=== PATIENT | male | born 1975 | race Caucasian/White ===

== ENCOUNTER 2016-07-04 16:11 | Inpatient (IN) | payer OTHER ==
[2016-07-04] VITALS (10 sets, daily range): BP systolic 98–137; BP diastolic 32–98; PULSE 82–107; RESP 17–23; TEMP 99.2–101.1; O2SAT 82–94
[~2016-07-04] VITALS: Ht 180.3 cm; Wt 264.0 kg
--- NOTE | 2016-07-04 16:11 | NUR ---
Patient to ER bed 1 to gown for evaluation. Side rails up. Report given to MILLER Lowe.
--- NOTE | 2016-07-04 16:15 | NUR ---
Dr. Cisneros by bedside examining patient.New orders recieved.
--- NOTE | 2016-07-04 16:20 | NUR ---
Patient brought in by ambulance for altered mental status. Patient upon admit is a 41 year old morbidly obese male, oriented to name only, confused, disoriented, presents labored breathing, shortness of breath, mild grade temp 99.3.No other complaints, injury per patient, none noted.
[2016-07-04] MEDS ORDERED: IPRATROPIUM BROM 0.5 MG/2.5 ML VIAL.NEB (ATROVENT) INH ONE (16:30)
[2016-07-04] MEDS ORDERED: LEVOFLOXACIN 500 MG/D5W 100 ML IV ONE ×2 (16:30→19:00)
[2016-07-04] MEDS: ALBUTEROL SULFATE 0.083% 2.5 MG/3 ML VIAL.NEB INH PRN ×2 (16:38→18:27)
--- NOTE | 2016-07-04 16:42 | NUR ---
# 20 gauge angiocath placed to left upper arm . Use of asceptic technique. Opsite placed over site. Blood return noted. Blood for lab drawn from site. Flushed with 10 cc of normal saline. No evidence of infiltration noted. Patient tolerated well.
[2016-07-04 16:49] LABS: ABG TOTAL HEMOGLOBIN 14.3 G/dL (12.0-18.0); BLOOD GAS BASE EXCESS 2.7 mmol/L (-3.0-3.0)
[2016-07-04 16:50] LABS: BLOOD GAS COHb% 1.6 % (0.5-1.5); BLOOD GAS HHB 15.3 % (0.0-6.0); BLOOD O2Hb% 82.6 % (94.0-97.0)
--- NOTE | 2016-07-04 16:50 | NUR ---
RT contacted to place patient on bipap support.
[2016-07-04 16:56] LABS: BASOPHILS # (AUTO) 0.3 K/uL (0.0-0.2); EOSINOPHILS % (AUTO) 0.1 % (0.0-4.0); LYMPHOCYTES # (AUTO) 0.5 K/uL (1.0-5.5); MEAN CORPUSCULAR HEMOGLOBIN 24 pg (27-31)
[2016-07-04 17:07] LABS: BASOPHILS % (AUTO) 1.9 % (0.0-2.0); CALCIUM 8.8 mg/dL (8.4-11.0); CHLORIDE 98 mmol/L (98-107); CREATININE 1.41 mg/dL (0.55-1.30); GLUCOSE 161 mg/dL (70-99); HEMATOCRIT 44.8 % (36-54); HEMOGLOBIN 13.8 g/dL (14.0-18.0); INR 1.1 (0.80-1.20); MEAN CORPUSCULAR HGB CONC 31 % (32-36); MEAN CORPUSCULAR VOLUME 79 fL (79.0-98.0); MONOCYTES # (AUTO) 0.7 K/uL (0.0-1.0); MONOCYTES % (AUTO) 4.1 % (1.7-9.3); NEUTROPHILS # (AUTO) 16.7 K/uL (1.8-7.7); NEUTROPHILS % (AUTO) 90.9 % (40.0-70.0); POTASSIUM 3.9 mmol/L (3.5-5.1); PROTHROMBIN TIME 11.5 SECS (9.5-12.5); RED BLOOD CELL COUNT(AUTO) 5.71 MIL/uL (4.2-6.2); RED CELL DISTRIBUTION WIDTH 16.7 % (9.0-15.0); SODIUM SERUM 133 mmol/L (136-145); UREA NITROGEN, BLOOD 38 mg/dL (8-21); WHITE BLOOD COUNT (AUTO) 18.2 K/uL (4.8-10.8)
[2016-07-04] MEDS ORDERED: FUROSEMIDE 100 MG/10 ML VIAL ONE (17:12)
[2016-07-04] MEDS ORDERED: ASPIRIN 81 MG TAB.CHEW ONE (17:12)
[2016-07-04 17:13] LABS: ALANINE AMINOTRANSFERASE 101 U/L (12-78); ASPARTATE AMINOTRANSFERASE 37 U/L (10-37); TOTAL BILIRUBIN 0.8 mg/dL (0.0-1.0); TOTAL PROTEIN, SERUM 7.9 g/dL (6.4-8.3)
[2016-07-04 17:15] LABS: GFR AFRICAN AMERICAN 72 mL/min (>90)
[2016-07-04] MEDS ORDERED: FUROSEMIDE 100 MG/10 ML VIAL IVP ONE (17:15)
[2016-07-04] MEDS ORDERED: ASPIRIN 81 MG TAB.CHEW PO ONE (17:15)
[2016-07-04 17:16] LABS: ANION GAP < 3 (5-15)
[2016-07-04 17:21] LABS: PLATELET COUNT (AUTO) 328 K/uL (130-430)
--- NOTE | 2016-07-04 17:55 | NUR ---
Patient medicated as ordered.
[2016-07-04] MEDS ORDERED: ASPIRIN 81 MG TABLET(ECOTRIN) PO ONE (18:00)
[2016-07-04 18:13] LABS: ABG TOTAL HEMOGLOBIN 14.2 G/dL (12.0-18.0); BLOOD GAS BASE EXCESS 1.1 mmol/L (-3.0-3.0); BLOOD GAS PH 7.234 (7.350-7.450); BLOOD O2Hb% 83.6 % (94.0-97.0)
[2016-07-04 18:14] LABS: BLOOD GAS COHb% 1.5 % (0.5-1.5); BLOOD GAS HHB 14.8 % (0.0-6.0)
[2016-07-04] MEDS ORDERED: methylPREDNISolone SOD SUCC/PF 62.5 MG/ML VIAL IVP ONE (18:30)
[2016-07-04] MEDS ORDERED: IPRATROPIUM/ALBUTEROL SULFATE 3 ML AMPUL.NEB INH ONE (18:30)
[2016-07-04] MEDS ORDERED: methylPREDNISolone SOD SUCC/PF 62.5 MG/ML VIAL ONE (18:34)
[2016-07-04] MEDS ORDERED: LOSA1TAB34 PO (18:40)
[2016-07-04] MEDS ORDERED: PROP10TA10 PO (18:40)
[2016-07-04] MEDS ORDERED: ADDERAL PO (18:40)
[2016-07-04] MEDS ORDERED: ALBU8.5H8 INH (18:40)
[2016-07-04] MEDS ORDERED: VANCOMYCIN HCL 1,000 MG in NS 250 ML IV ONE (18:45)
[2016-07-04] MEDS ORDERED: NITROGLYCERIN 1 INCH (GM) OINT. TP ONE (18:45)
--- NOTE | 2016-07-04 18:55 | NUR ---
Transferred Patient transferred from ED to ICU bed 5 accompanied by ACLS staff and mother. Patient was transferred with 100% FIO2 mask. Patient is alert to name only, confused, disoriented. Placed on monitor. Bed locked, in lowest position, upper side rails x 2, call light within easy reach. Report given to MILLER Webster. Endorsed care to night nurse, MILLER Webster.
--- NOTE | 2016-07-04 18:55 | NUR ---
Transfer to ICU via ACLS protocol. Licensed nurse present. IV present no signs or symptoms of infiltration. Summary report printed. Report given at bedside.
[2016-07-04] MEDS ORDERED: AZITHROMYCIN 500 MG in NS 250 ML IV ONE (19:00)
--- NOTE | 2016-07-04 20:00 | NUR ---
DR JOE Wagner notified regarding Pt's condition. Orders received. 1. Change 18/5 BUR 20 2. Keep O2 Sat 88-93% 3. Repeat ABG after 1hour.
--- NOTE | 2016-07-04 20:00 | NUR ---
ASSESSMENT Pt lethargic, opens eyes to verbal stimulus. Bipap in use. SL present left AC. Bilateral lower extremities with pitting edema. Right medial lower leg with redness from foot to groin.
--- NOTE | 2016-07-04 20:18 | NUR ---
Called Dr. Wagner, Dr. Salgado and Dr. Naik's exchange for consults. SPoke to [facility]. Nurse is aware.
[2016-07-04] MEDS ORDERED: VANCOMYCIN HCL 1000 MG/VIAL IV ONE (20:42)
--- NOTE | 2016-07-04 20:45 | NUR ---
[facility] CATH: # 16 FR Beatty catheter with 10 cc bulb inserted with use of sterile technique. Bulb inflated with 10 cc sterile water. Immediate return of 600 cc lee urine noted. Bedside drainage bag placed below level of bladder. Urine sample collected and sent to lab at 2120. Pt tolerated procedure well.
[2016-07-04] MEDS ORDERED: IPRATROPIUM BROM 0.5 MG/2.5 ML VIAL.NEB (ATROVENT) INH PRN (21:30)
[2016-07-04] MEDS ORDERED: ALBUTEROL SULFATE 0.083% 2.5 MG/3 ML VIAL.NEB INH PRN (21:30)
[2016-07-04 21:39] LABS: BILIRUBIN,URINE NEGATIVE (NEGATIVE); BLOOD, URINE 2+ (NEGATIVE); CLARITY/URINE CLEAR (CLEAR); COLOR,URINE YELLOW (YELLOW); GLUCOSE,URINE NEGATIVE (NEGATIVE); KETONES,URINE NEGATIVE (NEGATIVE); LEUKOCYTE ESTERASE ,URINE NEGATIVE (NEGATIVE); NITRITE, URINE NEGATIVE (NEGATIVE); PROTEIN URINE TRACE (NEGATIVE)
[2016-07-04] MEDS ORDERED: ENOXAPARIN SODIUM 40 MG/0.4 ML SYRINGE SUBCUT ONE (21:45)
[2016-07-04 22:10] LABS: BACTERIA,URINE FEW /HPF (None Seen); WBC,URINE 0-3 /HPF (0-3)
[2016-07-04 22:11] LABS: FINE GRANULAR CASTS,URINE 0-10 /LPF (None Seen); MUCUS,URINE 1+ /LPF (None Seen)
[2016-07-04 22:19] LABS: ABG TOTAL HEMOGLOBIN 14.5 G/dL (12.0-18.0)
[2016-07-04 22:20] LABS: BLOOD GAS COHb% 1.8 % (0.5-1.5); BLOOD GAS HHB 7.9 % (0.0-6.0)
[2016-07-04] MEDS: INSULIN ASPART 100 UNITS/ML, 10 ML VIAL (NovoLOG) SUBCUT PRN (23:14)
[2016-07-05] VITALS (30 sets, daily range): BP systolic 85–132; BP diastolic 37–67; PULSE 78–95; RESP 16–36; TEMP 97.4–100.1; O2SAT 83–96; Ht 180.3 cm; Wt 264.0 kg
[2016-07-05] MEDS ORDERED: IPRATROPIUM/ALBUTEROL SULFATE 3 ML AMPUL.NEB INH SCH
[2016-07-05] MEDS ORDERED: CEFAZOLIN 1 GM IVPB PREMIX 100 ML IV ONE (00:18)
[2016-07-05] MEDS: CEFAZOLIN 1 GM IVPB PREMIX 50 ML IV SCH ×2 (01:15→06:04)
[2016-07-05] MEDS: ALBUTEROL SULFATE 0.083% 2.5 MG/3 ML VIAL.NEB INH SCH ×4 (02:32→19:28)
[2016-07-05] MEDS: IPRATROPIUM BROM 0.5 MG/2.5 ML VIAL.NEB (ATROVENT) INH SCH ×4 (02:33→19:28)
[2016-07-05] MEDS: INSULIN ASPART 100 UNITS/ML, 10 ML VIAL (NovoLOG) SUBCUT PRN (06:17)
[2016-07-05 06:44] LABS: ALBUMIN 2.5 g/dL (3.4-4.8); CALCIUM 8.3 mg/dL (8.4-11.0); CREATININE 1.76 mg/dL (0.55-1.30); POTASSIUM 4.2 mmol/L (3.5-5.1); TOTAL BILIRUBIN 0.8 mg/dL (0.0-1.0); TOTAL PROTEIN, SERUM 6.9 g/dL (6.4-8.3)
[2016-07-05 06:54] LABS: EOSINOPHILS % (AUTO) 0.1 % (0.0-4.0); HEMATOCRIT 38.5 % (36-54); HEMOGLOBIN 12.1 g/dL (14.0-18.0); LYMPHOCYTES # (AUTO) 0.5 K/uL (1.0-5.5); LYMPHOCYTES % (AUTO) 2.3 % (20.5-51.5); MEAN CORPUSCULAR HEMOGLOBIN 25 pg (27-31); MEAN CORPUSCULAR HGB CONC 31 % (32-36); MEAN CORPUSCULAR VOLUME 80 fL (79.0-98.0); MONOCYTES # (AUTO) 1.2 K/uL (0.0-1.0); MONOCYTES % (AUTO) 5.4 % (1.7-9.3); NEUTROPHILS # (AUTO) 21.2 K/uL (1.8-7.7); NEUTROPHILS % (AUTO) 92.2 % (40.0-70.0); PLATELET COUNT (AUTO) 320 K/uL (130-430); RED BLOOD CELL COUNT(AUTO) 4.84 MIL/uL (4.2-6.2); RED CELL DISTRIBUTION WIDTH 17.1 % (9.0-15.0); WHITE BLOOD COUNT (AUTO) 22.9 K/uL (4.8-10.8)
--- NOTE | 2016-07-05 07:15 | NUR ---
INITIAL NOTES RECEIVED PATIENT ON BED ASLEEP WITH SISTER AND MOTHER AT BEDSIDE.BREATHING EVEN AND UNLABORED WITH BIPAP MACHINE;TOLERATING SETTINGS WELL.NO ACUTE DISTRESS.IV SALINE LOCK INTACT AND PATENT;NO SIGNS AND SYMPTOMS OF INFILTRATION.SAFETY AND FALL PRECAUTIONS IN PLACE.CALL LIGHT WITHIN REACH
--- NOTE | 2016-07-05 08:00 | NUR ---
MD NOTIFICATION: DR. DIAZ CRITICAL ABG RESULTS RELAYED TO DR. DIAZ.
[2016-07-05 08:02] LABS: BLOOD GAS PH 7.235 (7.350-7.450)
[2016-07-05 08:03] LABS: ABG TOTAL HEMOGLOBIN 12.6 G/dL (12.0-18.0); BLOOD GAS BASE EXCESS 5.1 mmol/L (-3.0-3.0); BLOOD GAS COHb% 1.4 % (0.5-1.5); BLOOD O2Hb% 78.7 % (94.0-97.0)
--- NOTE | 2016-07-05 08:20 | NUR ---
RN NOTES DR. GALLO HERE TO EVALUATE PATIENT NEED FOR INTUBATION, PATIENT MORE AWAKE AND TALKING AT THIS TIME. SPOKE TO THE PATIENT AND FAMILY RE: PLAN OF CARE. WILL RECHECK BLOOD GASES IN 30 MIN.
--- NOTE | 2016-07-05 09:15 | NUR ---
Nutrition Update Sukhwinder Scale 15 noted. Pt admitted for Acute Respiratory Failure, CHF. Diet: Clear Liquid BMI: 81.2 kg/m2 RD to follow per nutrition care standards.
[2016-07-05 09:22] LABS: BLOOD GAS PH 7.272 (7.350-7.450)
[2016-07-05 09:23] LABS: ABG TOTAL HEMOGLOBIN 12.7 G/dL (12.0-18.0); BLOOD GAS BASE EXCESS 5.3 mmol/L (-3.0-3.0); BLOOD GAS COHb% 1.4 % (0.5-1.5); BLOOD GAS HHB 4.4 % (0.0-6.0); BLOOD O2Hb% 93.7 % (94.0-97.0)
--- NOTE | 2016-07-05 10:42 | NUR ---
ICU Assessment Patient was referred by Inventory Control Associate for ICU Assessment. Patient has acute respiratory failure, CHF, renal insufficiency, bilateral leg swelling and right leg cellulitis. History of obesity s/p bariatric surgery, hypertension, DM, CHF. HAND LACER met with patient's sister at bedside. Patient was on CPAP with labored breathing and did not rouse when spoken to. Patient's sister has just returned to the [place] from [place]. She stated that patient lives with his parents and has been very sob for months. He has been unable to sleep lying down for some time. He only agreed to go to urgent care because of leg pain. [place] and she wonders if patient received a bug bite on his leg. Patient's sister stated patient and the family are aware that patient may need to be intubated. She is aware that when patient is stable, he will go to a [facility] facility and they will discuss discharge plans at that time. She stated that patient and family are very yazdanism and are praying for patient and find that to be a great source of comfort. HAND LACER offered support and provided Social Service contact information.
--- NOTE | 2016-07-05 11:15 | NUR ---
DR. MONTIEL CAME AND EXAMINED THE PATIENT;WITH ORDERS AND CARRIED OUT
--- NOTE | 2016-07-05 11:24 | NUR ---
Discharge Planning Met with Mother and sister at bedside to discuss DC plan. I explained to them that we have notified [facility] of this admission and they are aware and have authorized patient's stay through today. I told them that [facility] will call for updates and their physician will speak with patient's admitting physician for status updates as well. Once MDs agree that patient is stable for transfer, [facility] will arrange transfer to one of their contracted facilities most likely [facility]. Family verbalized an understanding and are agreeable with transfer when indicated by MD. their facility of choice is [facility].
[2016-07-05] MEDS ORDERED: CEFTAROLINE FOSAMIL ACETATE 600 MG in NS 250 ML IV ONE (11:45)
[2016-07-05] MEDS ORDERED: methylPREDNISolone SOD SUCC 40 MG/ML VIAL IVP ONE (11:45)
--- NOTE | 2016-07-05 11:50 | NUR ---
DR. GALO CAME AND EXAMINED THE PATIENT;INFORMED REGARDING PATIENT'S LOW OUTPUT;WITH ORDERS AND CARRIED OUT
[2016-07-05] MEDS: NACL 0.9% 1,000 ML IV SCH (12:38)
--- NOTE | 2016-07-05 13:00 | NUR ---
PATIENT SERVED LUNCH;TOLERATED DIET WELL;ENCOURAGED TO EAT SLOWLY TO PREVENT ASPIRATION
--- NOTE | 2016-07-05 14:10 | NUR ---
DR. DIAZ HERE TO SEE PATIENT.
--- NOTE | 2016-07-05 14:45 | NUR ---
DR. DIAZ CAME AND EXAMINED THE PATIENT;WITH ORDERS AND CARRIED OUT
[2016-07-05] MEDS: ACETAMINOPHEN 325 MG TABLET PO PRN (14:56)
--- NOTE | 2016-07-05 15:25 | NUR ---
RT NOTES Pt. cont. to be off of BIPAP, pt. is awake, talking to family/visitor. Dr Wagner is aware.
--- NOTE | 2016-07-05 16:00 | NUR ---
PATIENT ON BED AWAKE TALKING TO FAMILY MEMBERS;NO ACUTE DISTRESS
--- NOTE | 2016-07-05 17:00 | NUR ---
RN NOTES: NEPHROLOGY CONSULT DR. PALACIOS CALLED FOR NEPHRO CONSULT.
--- NOTE | 2016-07-05 18:40 | NUR ---
PATIENT IS ON BED AWAKE ALERT,AND ORIENTED;EATING DINNER INDEPENDENTLY.BREATHING EVEN AND UNLABORED WITH O2 AT 3L/M VIA NASAL CANNULA;O2 SAT=92%.NO ACUTE DISTRESS.IVF INFUSING WELL;NO SIGNS AND SYMPTOMS OF INFILTRATION.SAFETY AND FALL PRECAUTIONS IN PLACE.CALL LIGHT WITHIN REACH.WILL ENDORSE TO NEXT SHIFT ACCORDINGLY
--- NOTE | 2016-07-05 19:30 | NUR ---
Received SBAR report from Oriana Archuleta RN. Patient Alert and oriented talking with the family. Denies any discomforts at this time. Tolerating O2 at 3L/min N/C. No distress noted.
[2016-07-05] MEDS: CEFTAROLINE FOSAMIL ACETATE 600 MG in NS 250 ML IV SCH (20:46)
[2016-07-05] MEDS: methylPREDNISolone SOD SUCC 40 MG/ML VIAL IVP SCH (20:46)
[2016-07-05] MEDS: ENOXAPARIN SODIUM 40 MG/0.4 ML SYRINGE SUBCUT SCH (20:46)
[2016-07-05] MEDS: traMADol HCL HCL 50 MG TABLET (ULTRAM) PO PRN (23:47)
--- NOTE | 2016-07-05 23:47 | NUR ---
Conveyed pain to the right leg with scale of 5 using numeric scale. Tramadol given as ordered.
[2016-07-06] VITALS (31 sets, daily range): BP systolic 94–153; BP diastolic 34–85; PULSE 65–91; RESP 7–33; TEMP 96.7–97.8; O2SAT 84–96
[2016-07-06] MEDS: IPRATROPIUM BROM 0.5 MG/2.5 ML VIAL.NEB (ATROVENT) INH SCH ×4 (00:34→19:00)
[2016-07-06] MEDS: ALBUTEROL SULFATE 0.083% 2.5 MG/3 ML VIAL.NEB INH SCH ×4 (00:34→19:00)
--- NOTE | 2016-07-06 00:47 | NUR ---
Conveyed pain is relieved. Ready to sleep, placed by RT on BiPAP with FiO2 of 40%, BUR 20, and 22/7.
[2016-07-06] MEDS: ACETAMINOPHEN 325 MG TABLET PO PRN (05:10)
--- NOTE | 2016-07-06 05:10 | NUR ---
Verbalized pain to his right lower extremity with scale of four from numeric scale of 1 to 10. Tramadol not due until 3 hours more. Tylenol offered given as ordered. Condition unchanged.
[2016-07-06] MEDS: NACL 0.9% 1,000 ML IV SCH ×2 (06:08→19:13)
[2016-07-06 06:56] LABS: ALBUMIN 2.3 g/dL (3.4-4.8); CALCIUM 8.2 mg/dL (8.4-11.0); CREATININE 2.19 mg/dL (0.55-1.30); POTASSIUM 4.5 mmol/L (3.5-5.1); TOTAL BILIRUBIN 0.8 mg/dL (0.0-1.0); TOTAL PROTEIN, SERUM 6.9 g/dL (6.4-8.3)
[2016-07-06 07:11] LABS: HEMATOCRIT 37.9 % (36-54); HEMOGLOBIN 11.6 g/dL (14.0-18.0); MEAN CORPUSCULAR HEMOGLOBIN 25 pg (27-31); MEAN CORPUSCULAR HGB CONC 31 % (32-36); MEAN CORPUSCULAR VOLUME 80 fL (79.0-98.0); PLATELET COUNT (AUTO) 324 K/uL (130-430); RED BLOOD CELL COUNT(AUTO) 4.72 MIL/uL (4.2-6.2)
--- NOTE | 2016-07-06 07:30 | NUR ---
AM ROUNDS RECEIVED PT UP IN BED. MOM AND SISTER AT BEDSIDE. AWAKE, ALERT, ORIENTED X4. BREATHING IS EVEN AND UNLABORED ON BIPAP. BIPAP REMOVED AND PLACED ON NC AT 3L/MIN. S1, S2 NOTED. LUNGS CTA. BOWEL SOUNDS X4.BLE WITH EDEMA 1+. RLE RED FROM THIGH TO FOOT- CELLULITIS NOTED. FULL ASSESSMENT COMPLETED, VSS. RD OF CALL LIGHT NOTED. BREAKFAST TRAY SET UP. ENCOURAGED PT TO CALL ME WITH ANY NEEDS.
[2016-07-06 07:37] LABS: WHITE BLOOD COUNT (AUTO) 22.5 K/uL (4.8-10.8)
--- NOTE | 2016-07-06 07:50 | NUR ---
RT NOTES Found pt on 3L NC, eating breakfast. Pt. is alert, no respiratory distress noted. Family at bedside. Will cont. to monitor pt.
[2016-07-06 08:19] LABS: ABG TOTAL HEMOGLOBIN 12.7 G/dL (12.0-18.0); BLOOD GAS BASE EXCESS 1.6 mmol/L (-3.0-3.0); BLOOD GAS PH 7.255 (7.350-7.450); BLOOD O2Hb% 88.6 % (94.0-97.0)
[2016-07-06 08:20] LABS: BLOOD GAS HHB 10.4 % (0.0-6.0)
[2016-07-06 09:19] LABS: ATYPICAL LYMPHOCYTES % 0 % (0-0); BAND % (MANUAL) 13 % (0-6); BASOPHILS % (MANUAL) 0 % (0-2); EOSINOPHILS % (MANUAL) 0 % (0-7); LYMPHOCYTES % (MANUAL) 3 % (20-46); MONOCYTES % (MANUAL) 6 % (0-11)
--- NOTE | 2016-07-06 09:20 | NUR ---
RN ROUNDS ADMIN AM MEDS WITH [facility]UDENT[facility]. PT HAIM WELL. ADMIN AVATB WITH NO ADVERSE REACTION NOTED
[2016-07-06] MEDS: methylPREDNISolone SOD SUCC 40 MG/ML VIAL IVP SCH ×2 (09:21→21:22)
[2016-07-06] MEDS: CEFTAROLINE FOSAMIL ACETATE 600 MG in NS 250 ML IV SCH ×2 (09:21→21:18)
[2016-07-06] MEDS: traMADol HCL HCL 50 MG TABLET (ULTRAM) PO PRN ×2 (09:21→19:29)
--- NOTE | 2016-07-06 09:29 | NUR ---
HERE DR PALACIOS HERE TO SEE PT. POC DISCUSSED. PT VERBALIZED UNDERSTANDING. NEW ORDERS NOTED.
[2016-07-06 10:31] LABS: ABG TOTAL HEMOGLOBIN 13.7 G/dL (12.0-18.0); BLOOD GAS BASE EXCESS 2.6 mmol/L (-3.0-3.0); BLOOD GAS PH 7.256 (7.350-7.450)
[2016-07-06 10:32] LABS: BLOOD GAS COHb% 1.5 % (0.5-1.5); BLOOD GAS HHB 15.5 % (0.0-6.0); BLOOD O2Hb% 82.4 % (94.0-97.0)
--- NOTE | 2016-07-06 11:05 | NUR ---
BIPAP PT RESTING WITH EYES CLOSED, CHEST RISING AND FALLING. BREATHING ON 3L/MIN, NC. O2 SAT IS DROPPING TO LOW 80S. PLACED ON BIPAP. O2 SAT IS 95%
--- NOTE | 2016-07-06 12:21 | NUR ---
DC planning: Faxed the transfer order attn to franklin [facility] at [facility] # [phone]. Kimberly to contact ICU for further transfer instruction. Addendum: 07/06/16 at 1409 by Jasmina Hernández DP Ordered Radiology CD. Placed transportation packet in nurses station.
--- NOTE | 2016-07-06 12:40 | NUR ---
HERE DR GALO, PCP, HERE TO SEE PT. NEW ORDERS NOTED.
[2016-07-06] MEDS: INSULIN ASPART 100 UNITS/ML, 10 ML VIAL (NovoLOG) SUBCUT PRN ×2 (12:58→18:29)
--- NOTE | 2016-07-06 15:00 | NUR ---
MD Dailey in to see patient. Case discussed with test case developer. Dr. Wagner wants patient to transfer to [place].
--- NOTE | 2016-07-06 16:00 | NUR ---
HYGIENE Performed CHG bath and brushed teeth. Patient cooperated well.
--- NOTE | 2016-07-06 16:45 | NUR ---
Spoke with Hieu Wolf [phone] and questions answered.
--- NOTE | 2016-07-06 17:10 | NUR ---
Pt noted to be drowsy but arousble. Pt spoke to [facility] and after phone call, placed back on bipap 29/09/40%. Will continue to monitor. Sats 90% with bipap in use. Family at bedside.
--- NOTE | 2016-07-06 17:30 | NUR ---
Spoke with [facility] CM and fax number provided. Still waiting for acceptance phone call. Pt in bed with Bipap 29/09/40% in use. Remains arousable and family at bedside.
--- NOTE | 2016-07-06 20:00 | NUR ---
DAY SHIFT RN CALLED-IN TO TELL NURSE ASSIGNED THAT SHE FORGOT TO SAY THAT IV SITE IS NOT GOOD AND THAT PT NEED ANOTHER IV SITE FOR BACK-UP.MESSAGE RELAYED TO PRIMARY RNMARLENE.
--- NOTE | 2016-07-06 20:00 | NUR ---
pt.presents stable condition.v/s assessed;within normal limits.o2 sat% noted at 94% o2 via nasal cannulae administered at 3l/min.breathing pattern stable.pt.presents iv access located lt.hand:line has placed a y-line.iv fluids infusing.pt.presents leal catheter. urine return present.pt.presents cellulitis located at the rt.leg;sin,foot.skin inflammed, intact.pt.had requested pain medication.i have administered ultram 1 tab po.pt's diet status advanced to soft.i have apprised the pt.that snacks are available.pt.requested juice;cranberry.i have provided the juice;2 cups.pt.is a possible transfer [facility]:to follow up.call light within pt's reach.
--- NOTE | 2016-07-06 21:00 | NUR ---
ABG'S THAT WAS REQUESTED BY TAMMY FROM [facility], WAS NOT DONE DUE TO DIFFICULTY IN DRAWING BLOOD, WILL RESCHEDULE IN AM SINCE PT NOT GOING TO BE TRANSFERRED [place].
--- NOTE | 2016-07-06 21:00 | NUR ---
SUZI MUNOZ [phone] CALLED. INFORMED US THAT DR GALO DID NOT RETURN THEIR CALL, AND THEY WOULD HOLD OFF ON THE PT'S TRANSFER TILL THE MORNING. DO ABG'S IN THE MORNING AT 3L/MIN/NC.
[2016-07-06] MEDS: ENOXAPARIN SODIUM 40 MG/0.4 ML SYRINGE SUBCUT SCH (21:22)
[2016-07-07] VITALS (25 sets, daily range): BP systolic 84–156; BP diastolic 40–117; PULSE 70–98; RESP 18–50; TEMP 97.3–98.2; O2SAT 58–96
--- NOTE | 2016-07-07 | NUR ---
pt.assessed.resp therapist applied the bi-pap.the resp therapist has fio-2 adjusted to 35%.the resp therapist has apprised ernestine and dariusz.i inquired if the pt. presents any request the pt.stated no.the leal catheter reviewed and emptied.iv fluids infusing.family at the bedside.
[2016-07-07] MEDS: IPRATROPIUM BROM 0.5 MG/2.5 ML VIAL.NEB (ATROVENT) INH SCH ×3 (00:20→13:15)
[2016-07-07] MEDS: ALBUTEROL SULFATE 0.083% 2.5 MG/3 ML VIAL.NEB INH SCH ×3 (00:21→13:15)
--- NOTE | 2016-07-07 01:50 | NUR ---
photos x2 taken of the rt.leg;pinon/foot.pt.presents cellulitis of the region.lt.leg;pinon/foot presents no manifestation of cellulitis.
[2016-07-07] MEDS: NACL 0.9% 1,000 ML IV SCH (03:38)
--- NOTE | 2016-07-07 04:00 | NUR ---
pt.assessed.v/s assessed.pt.is currently recieving the administration of o2 per bi-pap. fio-2 at 35%.pt.presents quiescent affect;calm,asleep.no distress/discomfort manifested.iv fluids bag changed. leal catheter emptied.family at the bedside. call light within the pt's reach.
[2016-07-07 06:29] LABS: CALCIUM 8.4 mg/dL (8.4-11.0); POTASSIUM 4.4 mmol/L (3.5-5.1)
[2016-07-07 06:38] LABS: CREATININE 1.41 mg/dL (0.55-1.30)
[2016-07-07] MEDS: INSULIN ASPART 100 UNITS/ML, 10 ML VIAL (NovoLOG) SUBCUT PRN ×2 (06:40→17:24)
[2016-07-07 06:42] LABS: HEMATOCRIT 38.5 % (36-54); MEAN CORPUSCULAR HEMOGLOBIN 25 pg (27-31); MEAN CORPUSCULAR HGB CONC 31 % (32-36); MEAN CORPUSCULAR VOLUME 80 fL (79.0-98.0); PLATELET COUNT (AUTO) 357 K/uL (130-430); RED BLOOD CELL COUNT(AUTO) 4.79 MIL/uL (4.2-6.2)
--- NOTE | 2016-07-07 07:30 | NUR ---
OPENING NOTE: RECEIVED REPORT FROM NIGHT NURSE. PATIENT IS RESTING COMFORTABLY IN BED. NO S/S OF DISTRESS OR SOB. PATIENT IS ON BIPAP SETTINGS 22/7, FIO2 35%, BACK UP RATE 20. VITAL SIGNS WNL, TEMPERATURE OF 98.0, RESPIRATORY RATE IS AT 25, OXYGEN SATURATION IS 89%. PATIENTS HEAD OF BED IS ELEVATED TO A 45% ANGLE. CURRY CATHETER IS DRAINING TO GRAVITY WITH GOOD URINE OUTPUT. PATIENT C/O OF PAIN 5/10 IN RIGHT FOOT AND LEG. TRAPEZE AVAILABLE AND PATIENT USING TO MOVE IN BED, CALL LIGHT IN REACH AND WILL CONTINUE TO MONITOR.
[2016-07-07 07:33] LABS: BAND % (MANUAL) 12 % (0-6); BASOPHILS % (MANUAL) 0 % (0-2); EOSINOPHILS % (MANUAL) 0 % (0-7); LYMPHOCYTES % (MANUAL) 6 % (20-46); MONOCYTES % (MANUAL) 9 % (0-11)
[2016-07-07] MEDS: traMADol HCL HCL 50 MG TABLET (ULTRAM) PO PRN (07:47)
[2016-07-07 08:27] LABS: BLOOD GAS PH 7.308 (7.350-7.450)
[2016-07-07 08:28] LABS: ABG TOTAL HEMOGLOBIN 12.7 G/dL (12.0-18.0); BLOOD GAS BASE EXCESS 3.5 mmol/L (-3.0-3.0)
[2016-07-07 08:29] LABS: BLOOD GAS COHb% 1.2 % (0.5-1.5); BLOOD GAS HHB 16.3 % (0.0-6.0); BLOOD O2Hb% 81.9 % (94.0-97.0)
--- NOTE | 2016-07-07 08:30 | NUR ---
NOTE: PATIENT IS RESTING IN BED. NO S/S OF DISTRESS OR SOB. ABG'S WERE DRAWN AND RESULTS WERE REPORTED TO DR. DIAZ. OXYGEN CHANGED TO NASAL CANNULA AT 3.[address] DIAZ. PATIENT TOLERATING WELL. OXYGEN SATURATION AT 89%. CURRY DRAINING TO GRAVITY. PATIENT IS ALERT AND ORIENTED, ABLE TO EXPRESS NEEDS, AND ASK FOR ASSISTANCE. CALL LIGHT IN REACH, AND WILL CONTINUE TO MONITOR.
[2016-07-07] MEDS: methylPREDNISolone SOD SUCC 40 MG/ML VIAL IVP SCH (08:37)
[2016-07-07] MEDS: CEFTAROLINE FOSAMIL ACETATE 600 MG in NS 250 ML IV SCH (08:37)
--- NOTE | 2016-07-07 09:45 | NUR ---
MD DR. PALACIOS HERE TO SEE PATIENT. CALLED [facility] AND SPOKE TO OIL FIELD PIPELINE SUPERVISOR THERE AND TOLD THEM PATIENT WAS STABLE FOR TRANSFER AND COULD GO TO A TELEMETRY BED.
--- NOTE | 2016-07-07 10:56 | NUR ---
MELONY DC PLANNING: RE: [facility] TRANSFER FAXED UPDATED INFO ON PT CONDITION TO [facility] MELONY/ADAM FOR REVIEW TODAY. PER ADAM, THEIR MD HAS REQUESTED THEY OBTAIN A TELE BED FOR Pt; AND ADAM WILL CONTACT BEDSIDE RN FOR REPORT AFTER SHE REVIEWS UPDATE REVIEW INFO. ADAM NOTIFIED OF Pt's WEIGHT FOR AMBULANCE ARRANGEMENTS.
--- NOTE | 2016-07-07 12:30 | NUR ---
Dr. Wagner in to see patient.
--- NOTE | 2016-07-07 14:12 | NUR ---
NOTE: PATIENT IS RESTING IN BED. CURRENTLY SLEEPING. STILL WAITING FOR TRANSFER TO [place], WAITING FOR BED ASSIGNMENT. PATIENT IS ALERT AND ORIENTED, FAMILY AT BEDSIDE. RESPIRATORY RATE OF 23, O2 SATURATION IS 88%, ON NASAL CANNULA 3.5L. NORMAL, SYMMETRICAL CHEST RISE SEEN. CURRY DRAINING TO GRAVITY WITH GOOD URINE OUTPUT. CALL LIGHT IN REACH AND WILL CONTINUE TO MONITOR.
--- NOTE | 2016-07-07 15:02 | NUR ---
[facility] CASE MANAGEMENT CALLED AND SPOKE WITH CADEN, FLATBED STITCHER FROM [facility]. ASKED FOR UPDATED AND SHE STATED THAT THEY ARE STILL WAITING FOR BED ASSIGNMENT. DR. GALO WAS IN TO SEE PATIENT AND ASKED CADEN IF THEY NEEDED TO DO A MD TO MD COMMUNICATION AND SHE STATED THAT THE MD IN [facility] DID NOT WANT TO ACCEPT THE PATIENT. CADEN SAID IF ANY CHANGES SHE WOULD CALL AND SPEAK TO RN.
--- NOTE | 2016-07-07 16:30 | NUR ---
TRANSFER ARRANGEMENT KATE BUSINESS AGENT FROM [facility] CALLED AND SAID PATIENT BED WAS AVAILABLE. PATIENT GOING TO ROOM 4019, TELE BED.PHONE NUMBER TO CALL AND PILLAR WORKER REPORT IS [phone] AND TO TALK TO LUCY. ADMITTING DOCTOR IS Rex [facility] TRANSPORT SET UP WITH [facility] AT 1800. PATIENT WAS INFORMED ABOUT TRANSFER.
--- NOTE | 2016-07-07 17:10 | NUR ---
MELONY DC PLANNING: TRANSFER TO [facility]; UNDERSTOOD THAT [facility] HAS CONTACTED THEM TO INFORM THEY WILL BE PICKING UP PATIENT AT 1800 FOR TRANSPORT TO [facility] [facility]; NURSING DID NOT HAVE A BED NUMBER.
--- NOTE | 2016-07-07 17:43 | NUR ---
REPORT REPORT GIVEN TO BARB AT [facility]. PATIENT TO BE TRANSFERRED AT 1800.
--- NOTE | 2016-07-07 18:20 | NUR ---
PT TRANSFERRED Report given to Rachele at [facility]. Transfer packet with Transfer Orders and Medication Reconciliation form given to EMT with report. Exitcare provided. [facility] ID band removed, replaced with ID band with pt's name and . Patient left with leal catheter and IV site. All belongings sent with patient. Patient left floor via gurney escorted by EMT in no distress.
[2016-07-08] MEDS ORDERED: methylPREDNISolone SOD SUCC 40 MG/ML VIAL IVP SCH (09:00)
== END 2016-07-07 18:25 | disposition short-term general hospital (02) | DRG 871 ==
LOC: SED 16:11 → SIC 18:01
PROVIDERS: ADMIT Internal Medicine; ATTEND Internal Medicine
PROC: 5A09457 Assistance with Respiratory Ventilation, 24-96 Consecutive Hours, Continuous Positive Airway Pressure (ICD-10-PCS; principal; 2016-07-04)
DX: A41.9 Sepsis, unspecified organism (principal); J18.9 Pneumonia, unspecified organism; J96.01 Acute respiratory failure with hypoxia; N17.0 Acute kidney failure with tubular necrosis; E43 Unspecified severe protein-calorie malnutrition; J96.02 Acute respiratory failure with hypercapnia; L03.115 Cellulitis of right lower limb; I13.0 Hypertensive heart and chronic kidney disease with heart failure and stage 1 through stage 4 chronic kidney disease, or unspecified chronic kidney disease; Z68.45 Body mass index [BMI] 70 or greater, adult; G47.33 Obstructive sleep apnea (adult) (pediatric); E86.1 Hypovolemia; E86.0 Dehydration; E66.01 Morbid (severe) obesity due to excess calories; I50.9 Heart failure, unspecified; N18.9 Chronic kidney disease, unspecified; E11.22 Type 2 diabetes mellitus with diabetic chronic kidney disease; F17.210 Nicotine dependence, cigarettes, uncomplicated; Z98.84 Bariatric surgery status; Z83.3 Family history of diabetes mellitus; Z91.14 Patient's other noncompliance with medication regimen
CPT/HCPCS: 36415; 36600; 71010; 76770; 80048; 80053; 81000-TC; 82803-TC; 82962; 83605; 83880; 84443-TC; 84484; 85007; 85025; 85027; 85610-TC; 87040-TC; 87081; 87086; 87205-TC; 93005; 93970; 94640; 94660; 96365; 96375; 99291; A6209; J0456; J0690; J0712; J1030; J1650; J1815; J1940; J1956; J2930; J3370; J7030; J7050